=== PATIENT | female | born 1980 | race Caucasian/White ===

== ENCOUNTER 2022-01-16 14:23 | Emergency (ER) | payer OTHER ==
[~2022-01-16] VITALS: Ht 177.8 cm; Wt 100.0 kg
[~2022-01-16 14:23] MED LIST: ALBU2.5V8 INH; ANTIDEPRESSANT; BIRTH CONTROL
--- NOTE | 2022-01-16 14:51 | PHYS DOC ---
Past History Past Medical History: Asthma, Diabetes, Hypertension, Other Past Surgical History: No Surgical History Smoking: Cigarettes, Less than 1pk/day Alcohol Use: None Drug Use: None Adult General Chief Complaint Chief Complaint: SORE THROAT HPI HPI Patient is a 41-year-old female presents with a day of sore throat, nasal congestion, mild headache and some nausea. Denies any recent travels, traumas, illnesses, fevers, chest pain, shortness of breath, abdominal pain, dysuria, hematuria or blood in stool. Denies any known ill contacts. Review of Systems Review of Systems Review of systems otherwise unremarkable except noted in HPI Allergies Allergies Allergies Coded Allergies Type Severity Reaction Last Updated Verified No Known Drug Allergies 07/14/14 No Physical Exam Physical Exam Constitutional: Well developed, well nourished, no acute distress, non-toxic appearance. [] HENT: Normocephalic, atraumatic, bilateral external ears normal, oropharynx moist, posterior oropharyngeal edema with some tonsillar exudate, nasal congestion Eyes: conjunctiva normal, no discharge. [] Neck: Normal range of motion, no tenderness, supple, no stridor, left-sided cervical lymphadenopathy. [] Cardiovascular:Heart rate regular rhythm, no murmur [] Lungs & Thorax: Bilateral breath sounds clear to auscultation [] Skin: Warm, dry, no erythema, no rash. [] Extremities: No tenderness, Neurologic: Alert and oriented X 3, no focal deficits noted. [] Psychologic: Affect normal, judgement normal, mood normal. [] Current Patient Data Vital Signs Vital Signs Date Time Temp Pulse Resp B/P (MAP) Pulse Ox O2 Delivery O2 Flow Rate FiO2 01/16/22 14:34 98.0 106 16 127/78 (94) 96 Room Air EKG EKG [] Radiology/Procedures Radiology/Procedures [] Heart Score C/O Chest Pain: No Risk Factors: Risk Factors: DM, Current or recent (<one month) smoker, HTN, HLP, family history of CAD, obesity. Risk Scores: Risk Factors: DM, Current or recent (<one month) smoker, HTN, HLP, family history of CAD, obesity. Course & Med Decision Making Course & Med Decision Making Patient is a 41-year-old female who presents with sore throat, nasal congestion headache and nausea Vital signs notable for mild tachycardia. Physical exam noted above. Given medicines for symptom control History symptoms suggestive of pharyngitis and Centor criteria 5 gives about a 50% chance of strep pharyngitis Started on antibiotics in the ED. Discussed symptom control at home. Advised to follow-up tomorrow with primary care physician Gave return precautions to the ED. Patient grateful, verbalized understanding and agreed with plan of discharge. Dragon Disclaimer Dragon Disclaimer This electronic medical record was generated, in whole or in part, using a voice recognition dictation system. Departure Departure: Impression: Primary Impression: Pharyngitis Disposition: HOME / SELF CARE / HOMELESS Condition: STABLE Referrals: AISHA MCCLOUD (PCP) Patient Instructions: Viral and Bacterial Pharyngitis Additional Instructions: Fever coming into the emergency department tonight allowing us to take care of you. Please read the attached information carefully to go over things we discussed. You can continue Tylenol, ibuprofen and Benadryl at home as needed as well as [id number] lozenges like Cepacol. Please take your antibiotics as prescribed until gone. Please follow-up with your primary care physician when you can to update on your ED visit and set up a follow-up visit. Please come back with new or concerning symptoms as we discussed. Scripts Amoxicillin (AMOXICILLIN) 500 Mg Tablet 1 TAB PO QID for strep throat for 7 Days, #26 TAB Prov: CAROL LARKIN MD 01/16/22 CAROL LARKIN MD Jan 16, 2022 14:51
[2022-01-16] MEDS ORDERED: AMOX500T PO (15:12)
[2022-01-16] MEDS ORDERED: diphenhydrAMINE HCL 25 MG CAPSULE PO ONE (15:15)
[2022-01-16] MEDS ORDERED: IBUPROFEN 600 MG TABLET. PO ONE (15:15)
[2022-01-16] MEDS ORDERED: DEXAMETHASONE 4 MG TABLET PO ONE (15:15)
[2022-01-16] MEDS ORDERED: AMOXICILLIN 250 MG CAPSULE PO ONE (15:15)
[2022-01-16] MEDS ORDERED: ACETAMINOPHEN 500 MG TABLET PO ONE (15:15)
[2022-01-16 15:55] VITALS: BP 126/74
== END 2022-01-16 15:55 | disposition home or self-care (01) ==
LOC: ER 14:23
DX: J02.9 Acute pharyngitis, unspecified (principal); R09.81 Nasal congestion; R51.9 Headache, unspecified; J45.909 Unspecified asthma, uncomplicated; E11.9 Type 2 diabetes mellitus without complications; I10 Essential (primary) hypertension; F17.210 Nicotine dependence, cigarettes, uncomplicated
CPT/HCPCS: 99284; J8540; Q0163